=== PATIENT | female | born 2000 | race Caucasian/White ===

== ENCOUNTER → 2023-05-17 14:37 | Outpatient (REF) | payer BC, SELFPAY | LOC: CPAP 14:37 | PROVIDERS: ATTENDING PHYSICIAN Obstetrics & Gynecology Gynecology | DX: Z01.419 Encounter for gynecological examination (general) (routine) without abnormal findings (principal) | CPT/HCPCS: G0123 ==

== ENCOUNTER → 2024-10-20 14:45 | Outpatient (REF) | payer BC, SELFPAY | LOC: CPAP 14:45 | PROVIDERS: ATTENDING PHYSICIAN Obstetrics & Gynecology Gynecology | DX: Z01.419 Encounter for gynecological examination (general) (routine) without abnormal findings (principal); Z11.3 Encounter for screening for infections with a predominantly sexual mode of transmission | CPT/HCPCS: 87491; 87591 ==